=== PATIENT | female | born 1980 | race Caucasian/White ===

== ENCOUNTER 2025-09-13 09:16 | Day surgery (SDC) | payer OTHER ==
[~2025-09-13] VITALS: Ht 162.6 cm; Wt 58.0 kg
[~2025-09-13 09:16] MED LIST: TIRZ12.5
[2025-09-13] MEDS ORDERED: MIDAZOLAM INJ 2 MG/2 ML VIAL As Ordered ONE (10:37)
[2025-09-13] MEDS ORDERED: LIDOCAINE 2% 100 MG/5 ML SDV (FOR ANES.) As Ordered ONE (10:53)
[2025-09-13 11:05] VITALS: TEMP 98.1
[2025-09-13 11:20] VITALS: BP 110/67; O2SAT 99
== END 2025-09-13 11:31 | disposition home or self-care (01) ==
LOC: M OPP 09:16
PROVIDERS: ATTEND Surgery
DX: Z12.11 Encounter for screening for malignant neoplasm of colon (principal); K57.30 Diverticulosis of large intestine without perforation or abscess without bleeding; Z80.0 Family history of malignant neoplasm of digestive organs; K44.9 Diaphragmatic hernia without obstruction or gangrene; K31.89 Other diseases of stomach and duodenum
CPT/HCPCS: 43239; 45380; 88305; J2250